=== PATIENT | female | born 1995 | race Caucasian/White ===

== ENCOUNTER → 2017-07-27 | Outpatient (CLI) | payer BC ==
--- NOTE | 2017-07-27 09:17 | US ---
EXAMINATION TYPE: US abdomen complete DATE OF EXAM: 07/27/2017 COMPARISON: NONE CLINICAL HISTORY: R11.0 abd pain. nausea x 3 years, 70lb weight loss EXAM MEASUREMENTS: Liver Length: 13.2 cm Gallbladder Wall: 0.2 cm CBD: 0.3 cm Spleen: 9.0 cm Right Kidney: 10.5 x 4.6 x 3.3 cm Left Kidney: 9.1 x 4.4 x 5.3 cm Pancreas: wnl Liver: wnl Gallbladder: folds seen otherwise,wnl Evidence for sonographic Umanzor's sign: no CBD: wnl Spleen: wnl Right Kidney: 2.1cm simple appearing cyst seen centrally mid pole level right kidney. Left Kidney: wnl Upper IVC: wnl Abd Aorta: wnl The liver is homogenous. The intrahepatic portion of the IVC and proximal abdominal aorta are within normal limits. There is no evidence of cholelithiasis. Common bile duct is unremarkable. The visu alized portions of the pancreas are homogenous. The spleen is unremarkable. Kidneys are symmetric a nd free of hydronephrosis. No suspicious solid or cystic renal lesions are seen. IMPRESSION: No suspicious finding identified to account for patient's symptoms of pain and nausea and recent weight loss.
== END | disposition home or self-care (01) ==
LOC: RADUSWWP 07:57
PROVIDERS: ATTEND Family Medicine
DX: R11.0 Nausea (principal)
CPT/HCPCS: 76700

== ENCOUNTER 2019-01-14 14:03 | Emergency (ER) | payer BC, OTHER ==
[2019-01-14 14:18] VITALS: RESP 18
[2019-01-14 14:50] LABS: Basophils # (A) 0.1 k/uL (0-0.2); Basophils % (A) 1 %; Eosinophils # (A) 0.1 k/uL (0-0.7); Eosinophils % (A) 1 %; HCT 42.5 % (34.0-46.0); HGB 13.8 gm/dL (11.4-16.0); Lymphocytes # (A) 2.4 k/uL (1.0-4.8); Lymphocytes % (A) 31 %; MCH 31.1 pg (25.0-35.0); MCHC 32.5 g/dL (31.0-37.0); MCV 95.8 fL (80.0-100.0); Mean Platelet Volume 6.5; Monocytes # (A) 0.3 k/uL (0-1.0); Monocytes % (A) 4 %; Neutrophils # (A) 4.7 k/uL (1.3-7.7); Neutrophils % (A) 61 %; Platelet Count 323 k/uL (150-450); RBC 4.44 m/uL (3.80-5.40); RDW 12.6 % (11.5-15.5); WBC 7.7 k/uL (3.8-10.6)
[2019-01-14 15:00] LABS: ALT 12 U/L (9-52); AST 21 U/L (14-36); African American GFR (CKD) >90 (>60 ml/min/1.73 sqM); Alkaline Phosphatase 48 U/L (38-126); Anion Gap 12 mmol/L; Blood Urea Nitrogen 10 mg/dL (7-17); Calcium 9.9 mg/dL (8.4-10.2); Carbon Dioxide 22 mmol/L (22-30); Chloride 106 mmol/L (98-107); Glucose 87 mg/dL (74-99); Potassium 4.4 mmol/L (3.5-5.1); Sodium 140 mmol/L (137-145); Total Bilirubin 2.8 mg/dL (0.2-1.3)
[2019-01-14 15:07] LABS: INR 0.9 (<1.2); Partial Thromboplastin Time 28.2 sec (22.0-30.0); Prothrombin Time 10.1 sec (9.0-12.0)
--- NOTE | 2019-01-14 15:50 | XR ---
EXAMINATION TYPE: XR chest 2V DATE OF EXAM: 01/14/2019 COMPARISON: NONE TECHNIQUE: PA and lateral views submitted. HISTORY: Pain FINDINGS: The lungs are clear and there is no pneumothorax, pleural effusion, or focal pneumonia. Sternum is not well seen on the lateral view could be positional or related to pectus deformity. Acute injury no t excluded. Hypertrophic changes of vertebral column. IMPRESSION: 1. CT of the chest recommended to assess the sternum.
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
[2019-01-14 16:32] VITALS: TEMP 98
--- NOTE | 2019-01-14 16:32 | XR ---
EXAMINATION TYPE: XR knee complete LT DATE OF EXAM: 01/14/2019 COMPARISON: NONE HISTORY: 23-year-old female left-sided knee pain after injury TECHNIQUE: 3 views FINDINGS: Mild anterior soft tissue swelling. No knee joint effusion. Extensor mechanism is intact. No acute fr acture, subluxation, or dislocation. IMPRESSION: No acute osseous abnormality seen.
[2019-01-14 16:48] LABS: Appearance,Urine Cloudy (Clear); Bilirubin,Urine Negative (Negative); Blood,Urine Negative (Negative); Color,Urine Yellow; Glucose,Urine (UA) Negative (Negative); Ketones,Urine 1+ (Negative); Leukocyte Esterase,Urine Negative (Negative); Mucus,Urine Many /hpf; Nitrite,Urine Negative (Negative); PH, Urine 5.5 (5.0-8.0); Protein,Urine Trace (Negative); RBC,Urine <1 /hpf (0-5); Specific Gravity,Urine 1.027 (1.001-1.035); Squamous Epithelial Cell,Urine 9 /hpf (0-4); Urobilinogen,Urine <2.0 mg/dL (<2.0); WBC,Urine 1 /hpf (0-5)
[2019-01-14 19:22] VITALS: BP 118/68; PULSE 66
== END 2019-01-14 18:05 | disposition home or self-care (01) ==
LOC: EC 14:03
DX: S80.02XA Contusion of left knee, initial encounter (principal); R07.89 Other chest pain; R79.89 Other specified abnormal findings of blood chemistry; R06.02 Shortness of breath; F41.9 Anxiety disorder, unspecified; Z91.018 Allergy to other foods; Z91.040 Latex allergy status; W18.40XA Slipping, tripping and stumbling without falling, unspecified, initial encounter; Y93.16 Activity, rowing, canoeing, kayaking, rafting and tubing
CPT/HCPCS: 36415; 71046; 80053; 81001; 81025; 83735; 84484; 85025; 85379; 85610; 85730; 93005; 99285

== ENCOUNTER 2019-10-29 13:21 | Outpatient (CLI) | payer BC ==
[2019-10-29 14:11] LABS: Appearance,Urine Clear (Clear); Bacteria,Urine Occasional /hpf; Bilirubin,Urine Negative (Negative); Blood,Urine Negative (Negative); Color,Urine Light Yellow; Glucose,Urine (UA) Negative (Negative); Ketones,Urine Negative (Negative); Leukocyte Esterase,Urine Large (Negative); Mucus,Urine Rare /hpf; Nitrite,Urine Negative (Negative); PH, Urine 7.5 (5.0-8.0); Protein,Urine Negative (Negative); RBC,Urine <1 /hpf (0-5); Specific Gravity,Urine 1.014 (1.001-1.035); Squamous Epithelial Cell,Urine 10 /hpf (0-4); Urobilinogen,Urine <2.0 mg/dL (<2.0); WBC,Urine 3 /hpf (0-5)
[2019-10-29 14:43] VITALS: BP 133/78; PULSE 103; RESP 14; TEMP 97.3
--- NOTE | 2019-10-30 09:06 | P.MSEPDOC ---
Presenting Problems - Arrival Data Date of Arrival on Unit: 10/29/19 Time of Arrival on Unit: 13:25 Mode of Transport: Wheelchair - Complaint OB-Reason for Admission/Chief Complaint: Other Comment: decreased fm, pressure, irregular contractions Medical History - Information : 1 Para: 0 Term: 0 : 0 Abortions: Spontaneous or Elective: 0 Number of Living Children: 0 - Gestational Age Gestational Age by ALEE (wks/days): 34 Weeks and 2 Days Review of Systems - Review of Systems Constitutional: No problems Breast: No problems ENT: No problems Cardiovascular: No problems Respiratory: No problems Gastrointestinal: No problems Genitourinary: No problems Musculoskeletal: No problems Neurological: No problems Skin: No problems Vital Signs - Temperature Temperature: 97.3 F Temperature Source: Tympanic - Pulse Right Brachial Pulse Rate: 103 Pulse Assessment Method: Automatic Cuff - Respirations Respiratory Rate: 14 Oxygen Delivery Method: Room Air - Blood Pressure Right Arm Blood Pressure: 133/78 Blood Pressure Mean: 96 Blood Pressure Source: Automatic Cuff Medical Screen Scoring (Pre) - Cervical Exam Dilation: 0 cm = 0 Membranes: Intact - Uterine Contractions Frequency: N/A - Maternal Vital Signs Maternal Temperature: N/A Maternal Blood Pressure: N/A Signs of Preeclampsia: N/A Maternal Respirations: N/A - Maternal Trauma Maternal Trauma: N/A - Assessment - Baby A Baseline FHR: 135 Heart Rate - NICHD Category: Category I (Normal) = 0 NST: Reactive - Total Score - Baby A Total Score - Baby A: 0 - Total Score - Baby B Total Score - Baby B: 0 - Total Score - Baby C Total Score - Baby C: 0 - Level of Risk - Baby A Level of Risk - Baby A: Low (0-5) - Level of Risk - Baby B Level of Risk - Baby B: Low (0-5) - Level of Risk - Baby C Level of Risk - Baby C: Low (0-5) Physician Notification (Pre) - Physician Notified Physician Notified Date: 10/29/19 Physician Notified Time: 14:09 New Order Received: Yes - Notification Comment Comment: reported pt visit with complaints, dr garcia pt phoned office before coming to triage. reported reactive nst, no contractions felt by pt, ua sent, movement. pt may be dc'd after cervical exam and ua results wnl Disposition - Disposition OB Disposition: Discharge to home Discharge Date: 10/29/19 Discharge Time: 14:30 I agree with the RN Medical Screening Exam: Yes Risk & Benefit of care provided described in d/c instruction: Yes Diagnosis: DECREASED MOVEMENTS, THIRD TRIMESTER, FETUS 1
== END 2019-10-29 14:30 | disposition home or self-care (01) ==
LOC: FBPOP 13:21
PROVIDERS: ATTEND Obstetrics & Gynecology
DX: O36.8131 Decreased fetal movements, third trimester, fetus 1 (principal); Z3A.34 34 weeks gestation of pregnancy
CPT/HCPCS: 59025; 81001; 99213

== ENCOUNTER 2019-11-24 13:49 | Outpatient (CLI) | payer BC ==
[2019-11-24 14:47] VITALS: BP 136/70; PULSE 88; RESP 16; TEMP 97.7
--- NOTE | 2019-11-26 08:26 | P.MSEPDOC ---
Presenting Problems - Arrival Data Date of Arrival on Unit: 11/24/19 Time of Arrival on Unit: 13:49 Mode of Transport: Wheelchair - Complaint OB-Reason for Admission/Chief Complaint: Rule Out SROM Comment: Pt states clear fluid down leg at 1230 when she was getting out of bed to use bathroom. Did not need to wear pad to hospital, underwear dry. Medical History - Information : 1 Para: 0 Term: 0 : 0 Abortions: Spontaneous or Elective: 0 Number of Living Children: 0 - Gestational Age Gestational Age by ALEE (wks/days): 38 Weeks and 0 Days Review of Systems - Review of Systems Constitutional: No problems Breast: No problems ENT: No problems Cardiovascular: No problems Respiratory: No problems Gastrointestinal: No problems Genitourinary: No problems Musculoskeletal: No problems Neurological: No problems Skin: No problems Vital Signs - Temperature Temperature: 97.7 F Temperature Source: Temporal Artery Scan - Pulse Right Sitting Brachial Pulse Rate: 88 Pulse Assessment Method: Automatic Cuff - Respirations Respiratory Rate: 16 Oxygen Delivery Method: Room Air O2 Sat by Pulse Oximetry: 97 - Blood Pressure Right Arm Sitting Blood Pressure: 136/70 Blood Pressure Mean: 92 Blood Pressure Source: Automatic Cuff Medical Screen Scoring (Pre) - Cervical Exam Dilation: 1-3 cm = 1 Effacement: More than 50% = 2 Membranes: Intact - Uterine Contractions Frequency: N/A Duration: N/A Intensity: N/A - Maternal Vital Signs Maternal Temperature: N/A Maternal Blood Pressure: N/A Signs of Preeclampsia: N/A Maternal Respirations: N/A - Maternal Trauma Maternal Trauma: N/A - Assessment - Baby A Baseline FHR: 120 Heart Rate - NICHD Category: Category I (Normal) = 0 NST: Reactive Position: N/A Station: N/A - Total Score - Baby A Total Score - Baby A: 3 - Total Score - Baby B Total Score - Baby B: 3 - Total Score - Baby C Total Score - Baby C: 3 - Level of Risk - Baby A Level of Risk - Baby A: Low (0-5) - Level of Risk - Baby B Level of Risk - Baby B: Low (0-5) - Level of Risk - Baby C Level of Risk - Baby C: Low (0-5) Physician Notification (Pre) - Physician Notified Physician Notified Date: 11/24/19 Physician Notified Time: 14:35 New Order Received: Yes - Notification Comment Comment: Spk c\Dr. Mao, advsd , 38 0/7, c/o possible SROM at 1230, clear fluid. Amnisure negative, no pooling or leaking observed. Contrx infrequent. SVE 1.5/85/-1,. Reactive NST. States to d/c home, follow up as scheduled. Disposition - Disposition OB Disposition: Triage, Discharge to home, Written follow up instructions reviewed Discharge Date: 11/24/19 Discharge Time: 14:42 I agree with the RN Medical Screening Exam: Yes Risk & Benefit of care provided described in d/c instruction: Yes Diagnosis: FALSE LABOR BEFORE 37 COMPLETED WEEKS OF GEST, THIRD TRI
== END 2019-11-24 14:42 | disposition home or self-care (01) ==
LOC: FBPOP 13:49
PROVIDERS: ATTEND Obstetrics & Gynecology
DX: O47.03 False labor before 37 completed weeks of gestation, third trimester (principal)
CPT/HCPCS: 59025; 84112; 99213

== ENCOUNTER 2019-11-27 15:59 | Outpatient (CLI) | payer BC ==
[2019-11-27 16:42] LABS: Basophils % (A) 0 %; Eosinophils # (A) 0.1 k/uL (0-0.7); Eosinophils % (A) 1 %; HCT 33.7 % (34.0-46.0); HGB 11.3 gm/dL (11.4-16.0); Hypochromasia Slight; Lymphocytes # (A) 1.8 k/uL (1.0-4.8); Lymphocytes % (A) 20 %; MCH 32.1 pg (25.0-35.0); MCHC 33.6 g/dL (31.0-37.0); MCV 95.5 fL (80.0-100.0); Mean Platelet Volume 7.6; Monocytes # (A) 0.4 k/uL (0-1.0); Monocytes % (A) 4 %; Neutrophils # (A) 6.7 k/uL (1.3-7.7); Neutrophils % (A) 73 %; Platelet Count 322 k/uL (150-450); RBC 3.53 m/uL (3.80-5.40); RDW 13.8 % (11.5-15.5); WBC 9.2 k/uL (3.8-10.6)
[2019-11-27 16:49] LABS: ALT 29 U/L (4-34); AST 35 U/L (14-36); African American GFR (CKD) >90 (>60 ml/min/1.73 sqM); Blood Urea Nitrogen 9 mg/dL (7-17); LDH 421 U/L (313-618); Non-African American GFR(CKD) >90 (>60 ml/min/1.73 sqM); Uric Acid 4.9 mg/dL (3.7-7.4)
[2019-11-27 16:53] LABS: Appearance,Urine Clear (Clear); Bacteria,Urine Rare /hpf; Bilirubin,Urine Negative (Negative); Blood,Urine Negative (Negative); Color,Urine Yellow; Glucose,Urine (UA) Negative (Negative); Ketones,Urine Trace (Negative); Leukocyte Esterase,Urine Moderate (Negative); Mucus,Urine Moderate /hpf; Nitrite,Urine Negative (Negative); Protein,Urine Trace (Negative); RBC,Urine 2 /hpf (0-5); Specific Gravity,Urine 1.025 (1.001-1.035); Squamous Epithelial Cell,Urine 3 /hpf (0-4); Urobilinogen,Urine <2.0 mg/dL (<2.0); WBC,Urine 5 /hpf (0-5)
[2019-11-27 17:16] LABS: Protein/Creatinine Ratio,Urine 0.085
[2019-11-27 17:17] LABS: Creatinine,Urine Random 207.7 mg/dL
--- NOTE | 2019-11-28 09:31 | P.MSEPDOC ---
Presenting Problems - Arrival Data Date of Arrival on Unit: 11/27/19 Time of Arrival on Unit: 15:59 Mode of Transport: Ambulatory - Complaint OB-Reason for Admission/Chief Complaint: PIH Comment: pt sent over from the office by Dr. Mao for PI work up Medical History - Gestational Age Gestational Age by ALEE (wks/days): 38 Weeks and 3 Days Review of Systems - Review of Systems Constitutional: No problems Breast: No problems ENT: No problems Cardiovascular: No problems Respiratory: No problems Gastrointestinal: No problems Genitourinary: No problems Musculoskeletal: No problems Neurological: No problems Skin: No problems Physician Notification (Pre) - Physician Notified Physician Notified Date: 11/27/19 Physician Notified Time: 17:10 New Order Received: Yes - Notification Comment Comment: all labs wnl, orders to discharge home Disposition - Disposition OB Disposition: Discharge to home, Written follow up instructions reviewed Discharge Date: 11/27/19 Discharge Time: 17:15 I agree with the RN Medical Screening Exam: Yes Risk & Benefit of care provided described in d/c instruction: Yes Diagnosis: GESTATIONAL HTN W/O SIGNIFICANT PROTEINURIA, THIRD TRIMESTER
== END 2019-11-27 17:15 | disposition home or self-care (01) ==
LOC: FBPOP 15:59
PROVIDERS: ATTEND Obstetrics & Gynecology
DX: O13.3 Gestational [pregnancy-induced] hypertension without significant proteinuria, third trimester (principal); Z3A.38 38 weeks gestation of pregnancy
CPT/HCPCS: 59025; 81001; 82565; 82570; 83615; 84156; 84450; 84460; 84520; 84550; 85025

== ENCOUNTER 2019-11-30 22:55 | Outpatient (CLI) | payer BC ==
[2019-12-01 00:28] VITALS: BP 134/82; PULSE 94; RESP 18; TEMP 97.3
--- NOTE | 2019-12-11 23:00 | P.MSEPDOC ---
Presenting Problems - Arrival Data Date of Arrival on Unit: 11/30/19 Time of Arrival on Unit: 22:55 Mode of Transport: Ambulatory - Complaint OB-Reason for Admission/Chief Complaint: Possible Onset of Labor Comment: pt states contractions began at 1999 every 3-4 min apart. pt rates 12/26 Medical History - Information : 1 Para: 0 Term: 0 : 0 Abortions: Spontaneous or Elective: 0 Number of Living Children: 0 - Gestational Age Gestational Age by ALEE (wks/days): 39 Weeks and 0 Days Review of Systems - Review of Systems Constitutional: No problems Breast: No problems ENT: No problems Cardiovascular: No problems Respiratory: No problems Gastrointestinal: No problems Genitourinary: No problems Musculoskeletal: No problems Neurological: No problems Skin: No problems Vital Signs - Temperature Temperature: 97.3 F Temperature Source: Temporal Artery Scan - Pulse Right Pulse Oximetery Pulse Rate: 94 Pulse Assessment Method: Pulse Oximetry - Respirations Respiratory Rate: 18 Oxygen Delivery Method: Room Air O2 Sat by Pulse Oximetry: 97 - Blood Pressure Right Arm Blood Pressure: 134/82 Blood Pressure Mean: 99 Blood Pressure Source: Automatic Cuff Medical Screen Scoring (Pre) - Cervical Exam Dilation: 1-3 cm = 1 Effacement: More than 50% = 2 Membranes: Intact - Uterine Contractions Frequency: > 5 minutes apart = 1 Duration: N/A Intensity: N/A - Maternal Vital Signs Maternal Temperature: N/A Maternal Blood Pressure: N/A Signs of Preeclampsia: N/A Maternal Respirations: N/A - Maternal Trauma Maternal Trauma: N/A - Assessment - Baby A Baseline FHR: 125 Heart Rate - NICHD Category: Category I (Normal) = 0 NST: Reactive Position: N/A Station: N/A - Total Score - Baby A Total Score - Baby A: 4 - Total Score - Baby B Total Score - Baby B: 4 - Total Score - Baby C Total Score - Baby C: 4 - Level of Risk - Baby A Level of Risk - Baby A: Low (0-5) - Level of Risk - Baby B Level of Risk - Baby B: Low (0-5) - Level of Risk - Baby C Level of Risk - Baby C: Low (0-5) Physician Notification (Pre) - Physician Notified Physician Notified Date: 12/01/19 Physician Notified Time: 00:03 New Order Received: Yes - Notification Comment Comment: Pt here for contractions, dilated 2,80,-2 (also dilated 2cm at last appt monday), with no change after one hour. contractions irregular per palpation and monitor, pt discharged home (lives 5 minutes away) Disposition - Disposition OB Disposition: Discharge to home Discharge Date: 12/01/19 Discharge Time: 00:15 I agree with the RN Medical Screening Exam: Yes Risk & Benefit of care provided described in d/c instruction: Yes Diagnosis: FALSE LABOR AT OR AFTER 37 COMPLETED WEEKS OF GESTATION
== END 2019-12-01 00:15 | disposition home or self-care (01) ==
LOC: FBPOP 22:55
PROVIDERS: ATTEND Obstetrics & Gynecology
DX: O47.1 False labor at or after 37 completed weeks of gestation (principal); Z3A.39 39 weeks gestation of pregnancy
CPT/HCPCS: 59025; 99213

== ENCOUNTER 2019-12-02 02:45 | Inpatient (IN) | payer BC ==
[2019-12-02] MEDS ORDERED: OXYTOCIN 10 UNIT/ML 1 ML VIAL IM PRN (05:32)
[2019-12-02] MEDS ORDERED: CARBOPROST TROMETHAMINE 250 MCG/ML 1 ML AMP IM PRN (05:32)
[2019-12-02] MEDS ORDERED: LIDOCAINE 0.5% (PF) 5 MG/ML (50 ML SDV) SQ PRN (05:32)
[2019-12-02] MEDS ORDERED: TERBUTALINE 1 MG/ML VIAL SQ PRN (05:32)
[2019-12-02] MEDS ORDERED: METHYLERGONOVINE 0.2 MG/ML 1 ML AMP IM PRN (05:32)
[2019-12-02 05:51] LABS: Basophils % (A) 0 %; Eosinophils # (A) 0.1 k/uL (0-0.7); Eosinophils % (A) 0 %; HCT 32.4 % (34.0-46.0); HGB 11.6 gm/dL (11.4-16.0); Hypochromasia Slight; Lymphocytes # (A) 1.5 k/uL (1.0-4.8); Lymphocytes % (A) 8 %; MCH 33.7 pg (25.0-35.0); MCHC 35.8 g/dL (31.0-37.0); Mean Platelet Volume 7.4; Monocytes # (A) 0.4 k/uL (0-1.0); Monocytes % (A) 3 %; Neutrophils # (A) 15.6 k/uL (1.3-7.7); Neutrophils % (A) 88 %; Platelet Count 306 k/uL (150-450); RBC 3.45 m/uL (3.80-5.40); WBC 17.7 k/uL (3.8-10.6)
[2019-12-02] MEDS ORDERED: ROPIVACAINE 5MG/ML 20ML VIAL ONE (06:18)
[2019-12-02] MEDS ORDERED: fentaNYL (PF) 50 MCG/ML 5 ML AMP ONE (06:18)
[2019-12-02] MEDS ORDERED: SODIUM CHLORIDE 0.9% 100 ML BAG ONE (06:18)
--- NOTE | 2019-12-02 06:37 | P.HPOB ---
History of Present Illness H&P Date: 12/02/19 Chief Complaint: Normal labor 24-year-old presents at 39 weeks and 1 day in labor. Her cervix changed in triage from 3 cm to 4 cm dilated, 80% effaced, -2 station. She is jesse every 2-4 minutes. heart tones 130 with moderate variability and reactive. Review of Systems All systems: negative Constitutional: Denies chills, Denies fever Eyes: denies blurred vision, denies pain Ears, nose, mouth and throat: Denies headache, Denies sore throat Cardiovascular: Denies chest pain, Denies shortness of breath Respiratory: Denies cough Gastrointestinal: Denies abdominal pain, Denies diarrhea, Denies nausea, Denies vomiting Genitourinary: Denies dysuria, Denies hematuria Musculoskeletal: Denies myalgias Integumentary: Denies pruritus, Denies rash Neurological: Denies numbness, Denies weakness Psychiatric: Denies anxiety, Denies depression Endocrine: Denies fatigue, Denies weight change Past Medical History Past Medical History: No Reported History Additional Past Medical History / Comment(s): hypoglycemia. Obstetric history: O+, amylase negative, rubella immune, RPR nonreactive, is B-, quad screen negative. History of Any Multi-Drug Resistant Organisms: None Reported Additional Past Surgical History / Comment(s): oral surgery Smoking Status: Former smoker Medications and Allergies Home Medications Medication Instructions Recorded Confirmed Type Pnv,Calcium 72/Iron/Folic Acid 1 tab PO DAILY 10/29/19 12/02/19 History [ Plus Tablet] Allergies Allergy/AdvReac Type Severity Reaction Status Date / Time adhesive Allergy Rash/Hives Verified 12/02/19 02:55 latex Allergy Rash/Hives Verified 12/02/19 02:55 tree nut Allergy Anaphylaxis Verified 12/02/19 02:55 Exam Osteopathic Statement: *. No significant issues noted on an osteopathic structural exam other than those noted in the History and Physical/Consult. Vital Signs Temp Pulse Resp BP Pulse Ox 12/02/19 04:31 97.3 F L 103 H 16 124/74 100 Intake and Output 12/01/19 12/01/19 12/02/19 14:59 22:59 06:59 Other: Weight 73.028 kg Heart: Regular rate and rhythm Lungs: Clear to auscultation bilaterally Abdomen: Soft, nontender Extremities: Negative Homans sign Results Result Diagrams: 12/02/19 05:40 Abnormal Lab Results - Last 24 Hours (Table) 12/02/19 Range/Units 05:40 WBC 17.7 H (3.8-10.6) k/uL RBC 3.45 L (3.80-5.40) m/uL Hct 32.4 L (34.0-46.0) % Neutrophils # 15.6 H (1.3-7.7) k/uL Assessment and Plan (1) Normal labor Current Visit: Yes Status: Acute Code(s): O80 - ENCOUNTER FOR FULL-TERM UNCOMPLICATED DELIVERY; Z37.9 - OUTCOME OF DELIVERY, UNSPECIFIED SNOMED Code(s): 80950664 Plan: 1. Admit to family place 2. Expectant management 3. Epidural for pain management 4. Anticipate normal vaginal delivery
[2019-12-02 07:31] LABS: Amphetamine Screen,Urine Not Detected (NotDetected); Barbiturate Screen,Urine Not Detected (NotDetected); Benzodiazepines Screen,Urine Not Detected (NotDetected); Cocaine Screen,Urine Not Detected (NotDetected); Methadone Screen, Urine Not Detected (NotDetected); Opiate Screen,Urine Not Detected (NotDetected); Oxycodone Screen, Urine Not Detected (NotDetected); Phencyclidine Screen,Urine Not Detected (NotDetected); Tricyclic Antidepressant,Urine Not Detected (NotDetected); Urn Cannabinoid Scrn Detected (NotDetected)
[2019-12-02] MEDS ORDERED: OXYTOCIN 30 UNITS/500 ML NS 30 UNIT in SALINE 1 500ML.BAG IV SCH (08:00)
[2019-12-02 10:42] LABS: Amphetamine Screen,Urine Not Detected (NotDetected); Barbiturate Screen,Urine Not Detected (NotDetected); Benzodiazepines Screen,Urine Not Detected (NotDetected); Cocaine Screen,Urine Not Detected (NotDetected); Methadone Screen, Urine Not Detected (NotDetected); Opiate Screen,Urine Not Detected (NotDetected); Oxycodone Screen, Urine Not Detected (NotDetected); Phencyclidine Screen,Urine Not Detected (NotDetected); Tricyclic Antidepressant,Urine Not Detected (NotDetected); Urn Cannabinoid Scrn Not Detected (NotDetected)
[2019-12-02] MEDS: LACTATED RINGERS 1,000 ML IV SCH ×2 (10:43→18:06)
[2019-12-02] MEDS ORDERED: diphenhydrAMINE 50 MG CAP PO PRN (13:17)
[2019-12-02] MEDS ORDERED: SIMETHICONE 80 MG CHEWABLE PO PRN (13:17)
[2019-12-02] MEDS ORDERED: LANOLIN CREAM 5 GM TUBE TOPICAL PRN (13:17)
[2019-12-02] MEDS ORDERED: ZOLPIDEM 5 MG TAB PO PRN (13:17)
[2019-12-02] MEDS ORDERED: BENZOCAINE/MENTHOL SPRAY 1 GM/SPRAY AEROSOL TOPICAL PRN (13:17)
[2019-12-02] MEDS ORDERED: diphenhydrAMINE 50 MG/ML 1 ML VIAL IVP PRN ×2 (13:17)
[2019-12-02] MEDS ORDERED: WITCH HAZEL 1 EACH MED..PAD TOPICAL PRN (13:17)
[2019-12-02] MEDS ORDERED: diphenhydrAMINE 25 MG CAP PO PRN (13:17)
[2019-12-02] MEDS ORDERED: ACETAMINOPHEN TAB 325 MG TAB PO PRN (13:17)
[2019-12-02] MEDS ORDERED: HYDROCORTISONE 2.5% RECTAL CREAM 30 GM TUBE RECTAL PRN (13:17)
[2019-12-02] MEDS ORDERED: OXYTOCIN 20 UNITS/1000 ML NS 1,000 ML IV SCH (13:30)
--- NOTE | 2019-12-02 13:38 | P.PROBDLV ---
Vaginal Delivery Note - . Vaginal Delivery Note: Urvashi progressed to complete and pushed with spontaneous vaginal delivery of a viable female over an intact perineum. Falling deliver the head anterior posterior shoulders were easily delivered with gentle downward upper traction from right occiput anterior position. Baby was fully delivered mouth nares were bulb suctioned and baby was placed on mother's abdomen where the umbilical cord was clamped cut usual fashion. Nursery personnel was present to assume care. Placenta was then delivered intact following collection of cord blood. No significant lacerations are noted. scores and weight are pending but both mother and baby currently appear stable following delivery.
[2019-12-02] MEDS: IBUPROFEN 600 MG TAB PO PRN (14:28)
[2019-12-02] MEDS ORDERED: DIPH,PERTUS(ACELL)TETVAC-LF 0.5 ML VIAL IM ONE (18:09)
[2019-12-02] MEDS: SENNOSIDES-DOCUSATE SODIUM 1 EACH TAB PO SCH (19:35)
[2019-12-03] MEDS: IBUPROFEN 600 MG TAB PO PRN (00:24)
[2019-12-03 06:12] LABS: Basophils % (A) 0 %; Eosinophils # (A) 0.2 k/uL (0-0.7); Eosinophils % (A) 1 %; HCT 30.7 % (34.0-46.0); HGB 10.1 gm/dL (11.4-16.0); Hypochromasia Slight; Lymphocytes # (A) 2.7 k/uL (1.0-4.8); Lymphocytes % (A) 15 %; MCH 31.6 pg (25.0-35.0); MCHC 32.9 g/dL (31.0-37.0); MCV 96.2 fL (80.0-100.0); Mean Platelet Volume 7.6; Monocytes # (A) 0.5 k/uL (0-1.0); Monocytes % (A) 3 %; Neutrophils # (A) 14.5 k/uL (1.3-7.7); Neutrophils % (A) 80 %; Platelet Count 282 k/uL (150-450); RDW 13.7 % (11.5-15.5); WBC 18.1 k/uL (3.8-10.6)
[2019-12-03] MEDS: SENNOSIDES-DOCUSATE SODIUM 1 EACH TAB PO SCH ×2 (07:30→08:32)
[2019-12-03 08:08] VITALS: BP 107/72; PULSE 78; RESP 20; TEMP 98
--- NOTE | 2019-12-03 08:22 | P.DS ---
Providers Date of admission: 12/02/19 05:22 Expected date of discharge: 12/03/19 Attending physician: Aamir Mao Primary care physician: Stated None Hospital Course: Urvashi is doing very well post day 1. She is ambulating, voiding and tolerating her diet. She voices no complaints. Vital signs are stable and afebrile. Heart regular, lungs clear, extremities without pain. Abdomen soft uterus firm and lochia is reported light. Assessment day 1. Plan discharged home follow up with me in 6 weeks. Prescription for Motrin was 4 to her pharmacy Patient Condition at Discharge: Good Plan - Discharge Summary New Discharge Prescriptions: New Ibuprofen [Motrin] 600 mg PO Q6HR PRN #30 tab PRN Reason: Pain No Action Pnv,Calcium 72/Iron/Folic Acid [ Plus Tablet] 1 tab PO DAILY Discharge Medication List Pnv,Calcium 72/Iron/Folic Acid [ Plus Tablet] 1 tab PO DAILY 10/29/19 [History] Ibuprofen [Motrin] 600 mg PO Q6HR PRN #30 tab 12/03/19 [Rx] Follow up Appointment(s)/Referral(s): Aamir Mao DO [Doctor of Osteopathic Medicine] - 6 Weeks Activity/Diet/Wound Care/Special Instructions: No heavy lifting, limit stairs and driving, and pelvic rest. If any high temperatures, heavy bleeding, or severe pain call my office Discharge Disposition: HOME SELF-CARE
== END 2019-12-03 14:02 | disposition home or self-care (01) | DRG 807 ==
LOC: FBPOP 02:45 → 4FBP 05:22
PROVIDERS: ADMIT Obstetrics & Gynecology; ATTEND Obstetrics & Gynecology
PROC: 10E0XZZ Delivery of Products of Conception, External Approach (ICD-10-PCS; principal; 2019-12-02)
PROC: 3E0R3BZ Introduction of Anesthetic Agent into Spinal Canal, Percutaneous Approach (ICD-10-PCS; principal; 2019-12-02)
PROC: 3E0234Z Introduction of Serum, Toxoid and Vaccine into Muscle, Percutaneous Approach (ICD-10-PCS; principal; 2019-12-02)
PROC: 00HU33Z Insertion of Infusion Device into Spinal Canal, Percutaneous Approach (ICD-10-PCS; principal; 2019-12-02)
DX: O80 Encounter for full-term uncomplicated delivery (principal); Z37.0 Single live birth; Z23 Encounter for immunization; Z3A.39 39 weeks gestation of pregnancy; Z79.899 Other long term (current) drug therapy; Z87.891 Personal history of nicotine dependence; Z91.040 Latex allergy status; Z91.018 Allergy to other foods; Z91.048 Other nonmedicinal substance allergy status
CPT/HCPCS: 59025; 80306; 85025; 86850; 86900; 86901; 90715; 99213